=== PATIENT | male | born 1970 | race Caucasian/White ===

== ENCOUNTER 2019-07-14 10:22 | Emergency (ER) | payer BC, OTHER ==
[~2019-07-14] VITALS: Ht 177.8 cm; Wt 81.7 kg
[~2019-07-14 10:22] MED LIST: ANTIVERT25 MG PO; HYDROCODONE-AP1 EAC6 PO; IBUPROFEN 800800 M1 PO; NOHOMEMEDICATIONS; NORCO 5-325 TA1 EACH PO; PRILOSEC OTC20 MG PO
[2019-07-14] MEDS ORDERED: PRILOSEC OTC20 MG PO (10:30)
[2019-07-14 10:48] LABS: ABSOLUTE NEUTROPHILS 4.5 thou/uL (1.4-8.2); BASOPHILS 0.6 % (0.0-2.0); EOSINOPHILS 1.1 % (0.0-3.0); HEMOGLOBIN 16.2 gm/dL (14.0-18.0); LYMPHOCYTES 20.2 % (24.0-44.0); MCH 34.1 pg (26.0-34.0); MCHC 34.4 g/dL (28.0-37.0); MCV 99.2 fL (80.0-100.0); MONOCYTES 10.4 % (1.0-8.0); PLATELET COUNT 244 thou/uL (150-400); POLYS 67.7 % (36.0-66.0); RBC 4.74 mil/uL (4.50-6.00); RDW 12.6 % (10.5-14.5); WBC 6.6 thou/uL (4.0-11.0)
[2019-07-14 10:57] LABS: ANION GAP 9 mmol/L (7-16); BUN 12 mg/dL (7-18); CALCIUM 9.3 mg/dL (8.5-10.1); CHLORIDE 100 mmol/L (98-107); CO2 25 mmol/L (21-32); GLUCOSE 120 mg/dL (74-106); POTASSIUM 3.8 mmol/L (3.5-5.1); SODIUM 134 mmol/L (136-145)
[2019-07-14 11:05] LABS: ALBUMIN 4.4 g/dL (3.4-5.0); SGOT 25 U/L (15-37); SGPT 33 U/L (30-65); TOTAL BILIRUBIN 0.7 mg/dL (<0.1-1.0); TOTAL PROTEIN 7.6 g/dL (6.4-8.2); TROPONIN-I <0.06 ng/mL (<0.06)
[2019-07-14 13:28] VITALS: BP 126/84
--- NOTE | 2019-07-15 07:52 | EKG ---
[place] [address] [facility] [employer] [place] [address] ELECTROCARDIOGRAM REPORT Name: LUDWINZINA Room #: DEP Juan#: [id number] Admission: 07/14/19 Attend Phys: Discharge: 07/14/19 Date of : 66 Report #: [id number] THIS REPORT FOR: //name// [facility] ED Test Date: 2019-07-14 Test Time: 10:22:12 Pat Name: ZINA MASCORRO Department: Room: Gender: Supervisor [employer]: [facility] : 1970 Requested By: aTty Jernigan Order Number: [id number] MD: Lei Iqbal Measurements Intervals [place] Rate: 101 P: 25 OK: 168 QRS: 27 QRSD: 83 T: 39 QT: 325 QTc: 422 Interpretive Statements Sinus tachycardia Otherwise normal tracing No previous ECG available for comparison Electronically Signed On 07-15-2019 7:52:40 CDT by Lei Iqbal [email or web address] <ELECTRONICALLY SIGNED> By: Lei Iqbal MD, [facility] 07/15/19 0752 1022 1022 Lei Iqbal MD, FACC /EPI
== END 2019-07-14 13:28 | disposition home or self-care (01) ==
LOC: ER 10:22
PROVIDERS: Emergency Medicine
DX: I95.1 Orthostatic hypotension (principal); R42 Dizziness and giddiness; R07.89 Other chest pain; F17.210 Nicotine dependence, cigarettes, uncomplicated